=== PATIENT | female | born 1975 | race Caucasian/White ===

== ENCOUNTER → 2017-02-25 | Outpatient (CLI) | payer SELFPAY | END | disposition home or self-care (01) | LOC: RAD 09:49 | DX: E04.2 Nontoxic multinodular goiter (principal) | CPT/HCPCS: 76536 ==

== ENCOUNTER → 2017-03-31 | Outpatient (CLI) | payer SELFPAY | END | disposition home or self-care (01) | LOC: RAD 08:43 → EDSTATUS 09:00 → RAD 09:00 | PROC: 0G9H3ZX Drainage of Right Thyroid Gland Lobe, Percutaneous Approach, Diagnostic (ICD-10-PCS; principal; 2017-03-31) | DX: E04.2 Nontoxic multinodular goiter (principal) | CPT/HCPCS: 76942 ==

== ENCOUNTER → 2017-05-20 | Outpatient (CLI) | payer SELFPAY | END | disposition home or self-care (01) | LOC: RAD 08:50 | DX: E04.2 Nontoxic multinodular goiter (principal); R53.81 Other malaise; R53.83 Other fatigue | CPT/HCPCS: 76536 ==